=== PATIENT | male | born 1950 | race Caucasian/White ===

== ENCOUNTER 2017-05-10 12:12 | Emergency (ER) | payer MEDICARE ==
[~2017-05-10] VITALS: Ht 167.6 cm; Wt 72.7 kg
[2017-05-10] MEDS ORDERED: HYDR10TA31 PO (13:24)
[2017-05-10] MEDS ORDERED: MELA3TAB66 PO (13:24)
[2017-05-10] MEDS ORDERED: NIFE30TA5 PO (13:24)
[2017-05-10] MEDS ORDERED: MULT-1203 PO (13:24)
[2017-05-10] MEDS ORDERED: FE PR (13:24)
[2017-05-10] MEDS ORDERED: THIA100 PO (13:24)
[2017-05-10] MEDS ORDERED: BISA10S PR (13:24)
[2017-05-10] MEDS ORDERED: ACET-784 PO (13:24)
[2017-05-10] MEDS ORDERED: CYAN500 PO (13:24)
[2017-05-10] MEDS ORDERED: MOM30 PO (13:24)
[2017-05-10 13:44] VITALS: BP 158/99
== END 2017-05-10 18:57 | disposition home or self-care (01) ==
LOC: EMS 12:15
DX: F32.9 Major depressive disorder, single episode, unspecified (principal); I10 Essential (primary) hypertension; I25.10 Atherosclerotic heart disease of native coronary artery without angina pectoris; I11.9 Hypertensive heart disease without heart failure; F17.200 Nicotine dependence, unspecified, uncomplicated; Z88.8 Allergy status to other drugs, medicaments and biological substances
CPT/HCPCS: 99284